=== PATIENT | male | born 1980 | race Two or more races ===

== ENCOUNTER 2020-06-01 15:13 | Inpatient (IN) | payer SELFPAY ==
[~2020-06-01] VITALS: Ht 162.6 cm; Wt 65.9 kg
--- NOTE | 2020-06-01 15:33 | EKG ---
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
[2020-06-01 15:49] LABS: BASO % 0 % (0-3); EOS % 0 % (0-3); HEMATOCRIT 43.3 % (39.0-53.0); HEMOGLOBIN 15.1 g/dL (13.0-17.5); LYMPH # 1.1 x10^3/uL (1.0-4.8); LYMPH % 14 % (24-48); MEAN CORPUSCULAR HEMOGLOBIN 31 pg (25-35); MEAN CORPUSCULAR HGB CONC 35 g/dL (31-37); MEAN CORPUSCULAR VOLUME 90 fL (79-100); MONO # 0.8 x10^3/uL (0.0-1.1); MONO % 11 % (0-9); NEUT # 5.8 x10^3/uL (1.8-7.7); NEUT % 75 % (31-73); PLATELET COUNT 377 x10^3/uL (140-400); RED BLOOD COUNT 4.82 x10^6/uL (4.30-5.70); RED CELL DISTRIBUTION WIDTH 13.2 % (11.5-14.5); WHITE BLOOD COUNT 7.7 x10^3/uL (4.0-11.0)
--- NOTE | 2020-06-01 16:01 | RAD ---
Exam: Chest one view INDICATION: Cough, Covid TECHNIQUE: Frontal view of the chest Comparisons: None FINDINGS: The cardiomediastinal silhouette and pulmonary vessels are within normal limits. Patchy bibasilar airspace disease is noted. No pleural effusion. IMPRESSION: Patchy bilateral airspace disease, may be infectious or inflammatory in etiology. Electronically signed by: Lisa Henson MD (06/01/2020 3:58 PM) [id number]
[2020-06-01 16:02] LABS: CALCIUM 8.6 mg/dL (8.5-10.1); CREATININE 0.8 mg/dL (0.7-1.3); GFR 108.8
[2020-06-01 16:07] LABS: ALBUMIN 3.4 g/dL (3.4-5.0); ALBUMIN/GLOBULIN RATIO 0.8 (1.0-1.7); C-REACTIVE PROTEIN 116.2 mg/L (0-3.3); TOTAL BILIRUBIN 0.4 mg/dL (0.2-1.0); TOTAL PROTEIN 7.5 g/dL (6.4-8.2)
[2020-06-01] MEDS ORDERED: ACETAMINOPHEN 500 MG TABLET PO ONE (16:30)
--- NOTE | 2020-06-01 16:30 | PDOC1 ---
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[employer], CXR CONCERNING FOR COVID19 CHANGES, PT PLACE ON O2 Past Medical History Cardiovascular: No pertinent hx Pulmonary: No pertinent hx Hepatobiliary: No pertinent hx Family History Family History: Hypertension Social History Smoke: No ALCOHOL: occassional Drugs: None Current Medications Current Medications Current Medications Ceftriaxone Sodium (Rocephin) 1 gm 1X ONCE IVP ; Start 06/01/20 at 16:45; Stop 06/01/20 at 16:46 Allergies Allergies: Coded Allergies: No Known Drug Allergies (Unverified , 06/01/20) ROS General: YES: Chills, Fatigue, Malaise PSYCHOLOGICAL ROS: No: Anxiety, Behavioral Disorder, Concentration difficultie, Decreased libido, Depression, Disorientation, Hallucinations, Hostility, Irritablity, Memory difficulties, Mood Swings, Obsessive thoughts, Physical abuse, Sexual abuse, Sleep disturbances, Suicidal ideation, Other Eyes: No Blurry vision, No Decreased vision, No Double vision, No Dry eyes, No Excessive tearing, No Eye Pain, No Itchy Eyes, No Loss of vision, No Photophobia, No Scotomata, No Uses contacts, No Uses glasses, No Other HEENT: YES: Heacaches; No: Visual Changes, Hearing change, Nasal congestion, Nasal discharge, Oral lesions, Sinus pain, Sore Throat, Epistaxis, Sneezing, Snoring, Tinnitus, Vertigo, Vocal changes, Other ALLERGY AND IMMUNOLOGY: No: Hives, Insect Bite Sensitivity, Itchy/Watery Eyes, Nasal Congestion, Post Nasal Drip, Seasonal Allergies, Other Hematological and Lymphatic: No: Bleeding Problems, Blood Clots, Blood Transfusions, Brusing, Night Sweats, Pallor, Swollen Lymph Nodes, Other Respiratory: YES: Cough, Shortness of breath, SOB with excertion Cardiovascular: No Chest Pain, No Palpitations, No Orthopnea, No Paroxysmal Noc. Dyspnea, No Edema, No Lt Headedness, No Other Gastrointestinal: No Nausea, No Vomiting, No Abdominal Pain, No Diarrhea, No Constipation, No Melena, No Hematochezia, No Other Musculoskeletal: No Gait Disturbance, No Joint Pain, No Joint Stiffness, No Joint Swelling, No Muscle Pain, No Muscular Weakness, No Pain In:, No Swelling In:, No Other Neurological: No Behavorial Changes, No Bowel/Bladder ControlChng, No Confusion, No Dizziness, No Gait Disturbance, No Headaches, No Impaired Coord/balance, No Memory Loss, No Numbness/Tingling, No Seizures, No Speech Problems, No Tremors, No Visual Changes, No Weakness, No Other Skin: No Dry Skin, No Eczema, No Hair Changes, No Lumps, No Mole Changes, No Mottling, No Nail Changes, No Pruritus, No Rash, No Skin Lesion Changes, No Other, No Acne Physical Exam General: Alert, Oriented X3, Cooperative, No acute distress, mild distress HEENT: Atraumatic, EOMI, Mucous membr. moist/pink Lungs: Normal air movement Heart: S1S2, RRR, no gallops Breasts: Not examined Abdomen: Normal bowel sounds, Soft Rectal Exam: not examined Extremities: No cyanosis, No edema Skin: No significant lesion Neuro: Normal speech, Cranial nerves 3-12 NL Psych/Mental Status: Mental status NL, Mood NL Vitals Vitals Vital Signs Date Time Temp Pulse Resp B/P (MAP) Pulse Ox O2 Delivery O2 Flow Rate FiO2 06/01/20 15:29 96 Nasal Cannula 2.0 06/01/20 15:28 102.2 95 24 159/77 (104) 102.2 Labs Labs Laboratory Tests Test 06/01/20 15:30 White Blood Count 7.7 x10^3/uL (4.0-11.0) Red Blood Count 4.82 x10^6/uL (4.30-5.70) Hemoglobin 15.1 g/dL (13.0-17.5) Hematocrit 43.3 % (39.0-53.0) Mean Corpuscular Volume 90 fL (79-100) Mean Corpuscular Hemoglobin 31 pg (25-35) Mean Corpuscular Hemoglobin Concent 35 g/dL (31-37) Red Cell Distribution Width 13.2 % (11.5-14.5) Platelet Count 377 x10^3/uL (140-400) Neutrophils (%) (Auto) 75 % (31-73) Lymphocytes (%) (Auto) 14 % (24-48) Monocytes (%) (Auto) 11 % (0-9) Eosinophils (%) (Auto) 0 % (0-3) Basophils (%) (Auto) 0 % (0-3) Neutrophils # (Auto) 5.8 x10^3/uL (1.8-7.7) Lymphocytes # (Auto) 1.1 x10^3/uL (1.0-4.8) Monocytes # (Auto) 0.8 x10^3/uL (0.0-1.1) Eosinophils # (Auto) 0.0 x10^3/uL (0.0-0.7) Basophils # (Auto) 0.0 x10^3/uL (0.0-0.2) D-Dimer (Katie) 2.02 ug/mlFEU (0.00-0.50) Sodium Level 138 mmol/L (136-145) Potassium Level 4.0 mmol/L (3.5-5.1) Chloride Level 98 mmol/L (98-107) Carbon Dioxide Level 29 mmol/L (21-32) Anion Gap 11 (6-14) Blood Urea Nitrogen 13 mg/dL (8-26) Creatinine 0.8 mg/dL (0.7-1.3) Estimated GFR (Cockcroft-Gault) 108.8 BUN/Creatinine Ratio 16 (6-20) Glucose Level 103 mg/dL (70-99) Calcium Level 8.6 mg/dL (8.5-10.1) Total Bilirubin 0.4 mg/dL (0.2-1.0) Aspartate Amino Transf (AST/SGOT) 53 U/L (15-37) Alanine Aminotransferase (ALT/SGPT) 53 U/L (16-63) Alkaline Phosphatase 114 U/L (46-116) Lactate Dehydrogenase 354 U/L (85-227) Creatine Kinase 68 U/L (39-308) Troponin I Quantitative < 0.017 ng/mL (0.000-0.055) C-Reactive Protein, Quantitative 116.2 mg/L (0-3.3) YC-Dwn-T-Type Natriuretic Peptide 21 pg/mL (0-124) Total Protein 7.5 g/dL (6.4-8.2) Albumin 3.4 g/dL (3.4-5.0) Albumin/Globulin Ratio 0.8 (1.0-1.7) Laboratory Tests Test 06/01/20 15:30 White Blood Count 7.7 x10^3/uL (4.0-11.0) Red Blood Count 4.82 x10^6/uL (4.30-5.70) Hemoglobin 15.1 g/dL (13.0-17.5) Hematocrit 43.3 % (39.0-53.0) Mean Corpuscular Volume 90 fL (79-100) Mean Corpuscular Hemoglobin 31 pg (25-35) Mean Corpuscular Hemoglobin Concent 35 g/dL (31-37) Red Cell Distribution Width 13.2 % (11.5-14.5) Platelet Count 377 x10^3/uL (140-400) Neutrophils (%) (Auto) 75 % (31-73) Lymphocytes (%) (Auto) 14 % (24-48) Monocytes (%) (Auto) 11 % (0-9) Eosinophils (%) (Auto) 0 % (0-3) Basophils (%) (Auto) 0 % (0-3) Neutrophils # (Auto) 5.8 x10^3/uL (1.8-7.7) Lymphocytes # (Auto) 1.1 x10^3/uL (1.0-4.8) Monocytes # (Auto) 0.8 x10^3/uL (0.0-1.1) Eosinophils # (Auto) 0.0 x10^3/uL (0.0-0.7) Basophils # (Auto) 0.0 x10^3/uL (0.0-0.2) D-Dimer (Katie) 2.02 ug/mlFEU (0.00-0.50) Sodium Level 138 mmol/L (136-145) Potassium Level 4.0 mmol/L (3.5-5.1) Chloride Level 98 mmol/L (98-107) Carbon Dioxide Level 29 mmol/L (21-32) Anion Gap 11 (6-14) Blood Urea Nitrogen 13 mg/dL (8-26) Creatinine 0.8 mg/dL (0.7-1.3) Estimated GFR (Cockcroft-Gault) 108.8 BUN/Creatinine Ratio 16 (6-20) Glucose Level 103 mg/dL (70-99) Calcium Level 8.6 mg/dL (8.5-10.1) Total Bilirubin 0.4 mg/dL (0.2-1.0) Aspartate Amino Transf (AST/SGOT) 53 U/L (15-37) Alanine Aminotransferase (ALT/SGPT) 53 U/L (16-63) Alkaline Phosphatase 114 U/L (46-116) Lactate Dehydrogenase 354 U/L (85-227) Creatine Kinase 68 U/L (39-308) Troponin I Quantitative < 0.017 ng/mL (0.000-0.055) C-Reactive Protein, Quantitative 116.2 mg/L (0-3.3) NL-Gwe-E-Type Natriuretic Peptide 21 pg/mL (0-124) Total Protein 7.5 g/dL (6.4-8.2) Albumin 3.4 g/dL (3.4-5.0) Albumin/Globulin Ratio 0.8 (1.0-1.7) Images Images Exam: Chest one view INDICATION: Cough, Covid TECHNIQUE: Frontal view of the chest Comparisons: None FINDINGS: The cardiomediastinal silhouette and pulmonary vessels are within normal limits. Patchy bibasilar airspace disease is noted. No pleural effusion. IMPRESSION: Patchy bilateral airspace disease, may be infectious or inflammatory in etiology. Electronically signed by: Lisa Sullivan MD (06/01/2020 3:58 PM) [id number] DICTATED and SIGNED BY: LISA SULLIVAN MD DATE: 06/01/20 1558 VTE Prophylaxis Ordered VTE Prophylaxis Devices: Yes VTE Pharmacological Prophylaxi: Yes Assessment/Plan Assessment/Plan impression 1. FEVER, COUGH, HYPOXIA 2. COVID-19 PUI PLAN ADMIT O2 SUPPORT IV ZOSYN COVID 19 AG IV PEPSID 20 MG BID FERRITIN LEVEL CONSULT DR VERDUGO RESP ISOLATION DVT PROPHYLAXIS SQ LOVENOX 40 MG BID D/W ER MARIA LUZ Justicifation of Admission Dx: Justifications for Admission: Justification of Admission Dx: Yes CHF: Hemodynamic Instability Respiratory Failure: Severe Resp Distress Chronic Renal Failure: Hemodynamic Instability Sepsis: End-Organ Dysfunction Altered Mental Status: Altered Mental Status SHIRIN GOMEZ MD Jun 01, 2020 16:30
[2020-06-01] MEDS ORDERED: guaiFENesin ORAL 200 MG/10 ML LIQUID. PO PRN (16:45)
[2020-06-01] MEDS ORDERED: LORazepam 0.5 MG TABLET PO PRN (16:45)
[2020-06-01] MEDS ORDERED: ACETAMINOPHEN 325 MG TABLET. PO PRN (16:45)
[2020-06-01] MEDS ORDERED: DOCUSATE SODIUM 100 MG CAPSULE. PO PRN (16:45)
[2020-06-01] MEDS ORDERED: ONDANSETRON PF 4 MG/2 ML VIAL. IV PRN (16:45)
[2020-06-01] MEDS ORDERED: MAG HYDROX/ALUMINUM HYD/SIMETH 30 ML ORAL.SUSP PO PRN (16:45)
[2020-06-01] MEDS ORDERED: cefTRIAXone IV Push 1 GM VIAL. IVP ONE (16:45)
[2020-06-01] MEDS ORDERED: 0.9 % SODIUM CHLORIDE 10 ML DISP.SYRIN. IV PRN (16:45)
[2020-06-01] MEDS ORDERED: cloNIDine HCL 0.1 MG TABLET PO PRN (16:45)
[2020-06-01] MEDS: IV NORMAL SALINE 1000ML BAG 1,000 ML IV SCH (17:11)
[2020-06-01] MEDS ORDERED: PIPERACILLIN/TAZOBACTAM 3.375 GM in IV NORMAL SALINE 50ML 50 ML IV ONE (17:30)
--- NOTE | 2020-06-01 17:48 | PHYS DOC ---
Past Medical History Past Medical History: No Pertinent History Past Surgical History: Appendectomy Smoking Status: Current Some Day Smoker Alcohol Use: Occasionally General Adult EDM: Chief Complaint: SHORTNESS OF BREATH HPI: HPI: Patient is a 39 year old male who presents with shortness of breath, cough, fever, and body aches. This is been ongoing for the last week. It is been progressively getting worse. He states now he has a hard time walking short distances without feeling very short of breath. He has not been around anybody ill that he is aware of. He is still working. He states that he has diffuse body aches that are mild. He denies any chest pain. He has not had any nausea, vomiting, diarrhea, change in taste or smell. Review of Systems: Review of Systems: General: Reports fever, chills, sweats, fatigue Eyes: Denies drainage, blurred vision, eye redness HENT: Reports rhinorrhea, sore throat, earache Respiratory: Reports cough, shortness of breath, wheezing Cardiac: Denies edema, palpitations, chest pain GI: Denies abdominal pain, Nausea, vomiting MSK: Denies back pain, neck pain Skin: Denies rash, jaundice Neuro: Denies headache, dizziness Psychiatric: Denies SI/HI Heart Score: Risk Factors: Risk Factors: DM, Current or recent (<one month) smoker, HTN, HLP, family history of CAD, obesity. Risk Scores: Score 0 - 3: 2.5% MACE over next 6 weeks - Discharge Home Score 4 - 6: 20.3% MACE over next 6 weeks - Admit for Clinical Observation Score 7 - 10: 72.7% MACE over next 6 weeks - Early Invasive Strategies Current Medications: Current Medications Medications (Trade) Dose Ordered Sig/Piter Start Time Stop Time Status Last Admin Dose Admin Acetaminophen (Tylenol) 650 mg PRN Q4HRS PRN 06/01/20 16:45 Al Hydroxide/Mg Hydroxide (Mylanta Plus Xs) 30 ml PRN DAILY PRN 06/01/20 16:45 Budesonide (Pulmicort) 0.5 mg BID 06/01/20 21:00 Ceftriaxone Sodium (Rocephin) 1 gm 1X ONCE 06/01/20 16:45 06/01/20 16:46 DC 06/01/20 16:33 1 GM Clonidine HCl (Catapres) 0.1 mg PRN Q6HRS PRN 06/01/20 16:45 Docusate Sodium (Colace) 100 mg PRN BID PRN 06/01/20 16:45 Enoxaparin Sodium (Lovenox 40mg Syringe) 40 mg BID 06/01/20 21:00 Famotidine (Pepcid Vial) 20 mg BID 06/01/20 21:00 Guaifenesin (Robitussin) 200 mg PRN Q4HRS PRN 06/01/20 16:45 Lorazepam (Ativan) 0.5 mg PRN Q4HRS PRN 06/01/20 16:45 Methylprednisolone Sodium Succinate (SOLU-Medrol 40MG VIAL) 60 mg Q8HRS 06/01/20 22:00 Ondansetron HCl (Zofran) 4 mg PRN Q4HRS PRN 06/01/20 16:45 Piperacillin Sod/ Tazobactam Sod 3.375 gm/Sodium Chloride 50 ml @ 100 mls/hr 1X ONCE 06/01/20 17:30 06/01/20 17:59 06/01/20 17:10 100 MLS/HR Sodium Chloride 1,000 ml @ 100 mls/hr Q10H 06/01/20 16:40 06/01/20 17:11 100 MLS/HR Sodium Chloride (Normal Saline Flush) 3 ml QSHIFT PRN 06/01/20 16:45 Allergies: Allergies: Allergies Coded Allergies Type Severity Reaction Last Updated Verified No Known Drug Allergies 06/01/20 No Physical Exam: PE: General: Awake, alert, NAD. Well Nourished, well hydrated. Cooperative HEENT: Atraumatic, EOMI, PERRL, airway patent, moist oral mucosa Neck: Supple, trachea midline Respiratory: CTA bilaterally, normal effort, decreased breath sounds CV: RRR, no murmur, cap refill <2 GI: Soft, nondistended, nontender, no masses MSK: No obvious deformities Skin: Warm, dry, intact Neuro: A&O x3, speech NL, sensory and motor grossly intact, no focal deficits Psych: Normal affect, normal mood, not suicidal or homicidal Current Patient Data: Labs: Laboratory Tests Test 06/01/20 15:30 White Blood Count 7.7 x10^3/uL (4.0-11.0) Red Blood Count 4.82 x10^6/uL (4.30-5.70) Hemoglobin 15.1 g/dL (13.0-17.5) Hematocrit 43.3 % (39.0-53.0) Mean Corpuscular Volume 90 fL (79-100) Mean Corpuscular Hemoglobin 31 pg (25-35) Mean Corpuscular Hemoglobin Concent 35 g/dL (31-37) Red Cell Distribution Width 13.2 % (11.5-14.5) Platelet Count 377 x10^3/uL (140-400) Neutrophils (%) (Auto) 75 % (31-73) H Lymphocytes (%) (Auto) 14 % (24-48) L Monocytes (%) (Auto) 11 % (0-9) H Eosinophils (%) (Auto) 0 % (0-3) Basophils (%) (Auto) 0 % (0-3) Neutrophils # (Auto) 5.8 x10^3/uL (1.8-7.7) Lymphocytes # (Auto) 1.1 x10^3/uL (1.0-4.8) Monocytes # (Auto) 0.8 x10^3/uL (0.0-1.1) Eosinophils # (Auto) 0.0 x10^3/uL (0.0-0.7) Basophils # (Auto) 0.0 x10^3/uL (0.0-0.2) D-Dimer (Katie) 2.02 ug/mlFEU (0.00-0.50) H Sodium Level 138 mmol/L (136-145) Potassium Level 4.0 mmol/L (3.5-5.1) Chloride Level 98 mmol/L (98-107) Carbon Dioxide Level 29 mmol/L (21-32) Anion Gap 11 (6-14) Blood Urea Nitrogen 13 mg/dL (8-26) Creatinine 0.8 mg/dL (0.7-1.3) Estimated GFR (Cockcroft-Gault) 108.8 BUN/Creatinine Ratio 16 (6-20) Glucose Level 103 mg/dL (70-99) H Calcium Level 8.6 mg/dL (8.5-10.1) Ferritin 1565 ng/mL (26-388) H Total Bilirubin 0.4 mg/dL (0.2-1.0) Aspartate Amino Transferase (AST) 53 U/L (15-37) H Alanine Aminotransferase (ALT) 53 U/L (16-63) Alkaline Phosphatase 114 U/L (46-116) Lactate Dehydrogenase 354 U/L (85-227) H Creatine Kinase 68 U/L (39-308) Troponin I Quantitative < 0.017 ng/mL (0.000-0.055) C-Reactive Protein, Quantitative 116.2 mg/L (0-3.3) H ZC-Qxo-L-Type Natriuretic Peptide 21 pg/mL (0-124) Total Protein 7.5 g/dL (6.4-8.2) Albumin 3.4 g/dL (3.4-5.0) Albumin/Globulin Ratio 0.8 (1.0-1.7) L Laboratory Tests 06/01/20 15:30 Laboratory Tests 06/01/20 15:30 Vital Signs: Vital Signs Date Time Temp Pulse Resp B/P (MAP) Pulse Ox O2 Delivery O2 Flow Rate FiO2 06/01/20 16:30 90 126/69 (88) 96 Nasal Cannula 2.0 06/01/20 15:28 102.2 24 102.2 EKG: EKG: [] Radiology/Procedures: Radiology/Procedures: [] Course & Med Decision Making: Course & Med Decision Making Pertinent Labs and Imaging studies reviewed. (See chart for details) Patient is a 39-year-old male who presents to the emergency room with shortness of breath, cough, URI symptoms. At this time there is concern for the novel coronavirus 19. Patient's risk factors include hypoxia. Risk stratifying work- up was ordered including chest x-ray, d-dimer, CPK, CRP, LDH, troponin, ferritin, CBC, CMP. At this time, patients labs, vitals, and exam are significant for hypoxia, elevated inflammatory markers, infiltrates on chest x- ray. Due to patient's risk and clinical picture, they will need to be admitted at this time. IVFs will be limited due to concern for fluid overload in COVID-19 patients. Patient will be given empiric antibiotics due to infiltrates and risk of co-bacterial infection. Further treatment will be dictated by the inpatient team. Syed Disclaimer: Syed Disclaimer: This electronic medical record was generated, in whole or in part, using a voice recognition dictation system. PPE Use: Full PPE with N95 mask or PAPR: Yes Departure Departure Impression: Primary Impression: Pneumonia Additional Impression: 2019 novel coronavirus disease (COVID-19) Disposition: 09 ADMITTED INPATIENT Referrals: NO PCP (PCP) Justicifation of Admission Dx: Justifications for Admission: Justification of Admission Dx: Yes Comminuty Aquired Pneumonia: Hypoxemia GIRISH VALE MD Jun 01, 2020 17:48
[2020-06-01 18:21] VITALS: BP 144/65
--- NOTE | 2020-06-01 19:16 | CONS ---
DATE OF CONSULTATION: 06/01/2020 PULMONARY CONSULTATION ATTENDING PHYSICIAN: Jax Vasquez MD. REASON FOR CONSULTATION: COVID-19 pneumonia. HISTORY OF PRESENT ILLNESS: The patient is a 39-year-old male who does not speak Armenian. Much of the history was obtained with the help of [employer] Cook Islander translation. The patient presented with cough and shortness of breath and chills for the last one week. He was noted to be hypoxic in the Emergency Room and was placed on oxygen at 2 liters. 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 His chest x-ray reviewed and showed bilateral interstitial infiltrates. His COVID test has been obtained and is pending. He has a fever of 102. He is currently on 2 liters with saturation of 97%. PAST MEDICAL HISTORY: Essentially unremarkable. PAST SURGICAL HISTORY: Appendectomy. SOCIAL HISTORY: Has some minimal tobacco use. ALLERGIES: None. MEDICATIONS: Reviewed as listed in the MRAD including antibiotic, Zosyn and IV prednisolone. REVIEW OF SYSTEMS: Unable to obtain from the patient. PHYSICAL EXAMINATION: VITAL SIGNS: Reviewed. T-max of 102, pulse ox 97% on 2 liters. Visual exam done via telemedicine due to COVID pandemia. GENERAL: He is in no obvious respiratory distress. SKIN: With no rash. EXTREMITIES: Legs with no edema. LABORATORY DATA: Reviewed. White cell count 7.7, hemoglobin 15.1, platelets are 377. BUN 13, creatinine 0.8. Ferritin 1565. IMPRESSION: 1. Acute hypoxic respiratory failure secondary to highly suspected COVID-19 pneumonia. 2. Abnormal chest x-ray with patchy interstitial infiltrates, highly suspicious for COVID-19 pneumonia. RECOMMENDATIONS: 1. Continue with present oxygen to keep saturation 92-94. 2. Continue empiric antibiotic. 3. Continue IV steroids. 4. Monitor the response to treatment. 5. We will consider remdesivir. 6. Discussed with RN. Discussed with the patient. 7. Continue with high dose DVT prophylaxis and follow up the inflammatory markers. RAUL VERDUGO MD DR: RISA/noah JOB#: [id number] / [id number]
[2020-06-01] MEDS: FAMOTIDINE 20 MG/2 ML VIAL IVP SCH (20:09)
[2020-06-01] MEDS: ENOXAPARIN 40 MG/0.4 ML SYRINGE. SQ SCH (20:09)
[2020-06-01 20:15] VITALS: BP 131/63
[2020-06-01] MEDS: methylPREDNISolone SOD SUCC PF 40 MG/ML VIAL. IV SCH (23:15)
[2020-06-01] MEDS: PIPERACILLIN/TAZOBACTAM 3.375 GM in IV NORMAL SALINE 50ML 50 ML IV SCH (23:15)
[2020-06-01 23:23] VITALS: BP 129/64
[2020-06-02 03:39] VITALS: BP 130/70
[2020-06-02] MEDS: IV NORMAL SALINE 1000ML BAG 1,000 ML IV SCH ×2 (03:59→12:33)
[2020-06-02] MEDS: PIPERACILLIN/TAZOBACTAM 3.375 GM in IV NORMAL SALINE 50ML 50 ML IV SCH (06:26)
[2020-06-02] MEDS: methylPREDNISolone SOD SUCC PF 40 MG/ML VIAL. IV SCH (06:26)
[2020-06-02] MEDS: BUDESONIDE 0.5 MG/2 ML NEBU. NEB SCH ×2 (06:32→21:00)
[2020-06-02 08:00] VITALS: BP 128/62
[2020-06-02] MEDS: FAMOTIDINE 20 MG/2 ML VIAL IVP SCH ×2 (08:08→21:11)
[2020-06-02] MEDS: ENOXAPARIN 40 MG/0.4 ML SYRINGE. SQ SCH ×2 (08:09→21:12)
[2020-06-02 11:00] VITALS: BP 137/69
--- NOTE | 2020-06-02 11:09 | PDOC ---
PULMONARY PROGRESS NOTES DATE: 06/02/20 TIME: 11:04 Subjective Pt. on 2 liters, no SOA no increased cough Clinically improved a-febrile overnight Vitals Vital Signs Date Time Temp Pulse Resp B/P (MAP) Pulse Ox O2 Delivery O2 Flow Rate FiO2 06/02/20 08:00 97.1 75 14 128/62 (84) 97 Nasal Cannula 2.0 97.1 Comments Visual exam preformed pt. seen during COVID- pandemic RRR no distress no rash no edema on N/C o2 Labs Laboratory Tests Test 06/01/20 15:30 White Blood Count 7.7 x10^3/uL (4.0-11.0) Red Blood Count 4.82 x10^6/uL (4.30-5.70) Hemoglobin 15.1 g/dL (13.0-17.5) Hematocrit 43.3 % (39.0-53.0) Mean Corpuscular Volume 90 fL (79-100) Mean Corpuscular Hemoglobin 31 pg (25-35) Mean Corpuscular Hemoglobin Concent 35 g/dL (31-37) Red Cell Distribution Width 13.2 % (11.5-14.5) Platelet Count 377 x10^3/uL (140-400) Neutrophils (%) (Auto) 75 % (31-73) Lymphocytes (%) (Auto) 14 % (24-48) Monocytes (%) (Auto) 11 % (0-9) Eosinophils (%) (Auto) 0 % (0-3) Basophils (%) (Auto) 0 % (0-3) Neutrophils # (Auto) 5.8 x10^3/uL (1.8-7.7) Lymphocytes # (Auto) 1.1 x10^3/uL (1.0-4.8) Monocytes # (Auto) 0.8 x10^3/uL (0.0-1.1) Eosinophils # (Auto) 0.0 x10^3/uL (0.0-0.7) Basophils # (Auto) 0.0 x10^3/uL (0.0-0.2) D-Dimer (Katie) 2.02 ug/mlFEU (0.00-0.50) Sodium Level 138 mmol/L (136-145) Potassium Level 4.0 mmol/L (3.5-5.1) Chloride Level 98 mmol/L (98-107) Carbon Dioxide Level 29 mmol/L (21-32) Anion Gap 11 (6-14) Blood Urea Nitrogen 13 mg/dL (8-26) Creatinine 0.8 mg/dL (0.7-1.3) Estimated GFR (Cockcroft-Gault) 108.8 BUN/Creatinine Ratio 16 (6-20) Glucose Level 103 mg/dL (70-99) Calcium Level 8.6 mg/dL (8.5-10.1) Ferritin 1565 ng/mL (26-388) Total Bilirubin 0.4 mg/dL (0.2-1.0) Aspartate Amino Transf (AST/SGOT) 53 U/L (15-37) Alanine Aminotransferase (ALT/SGPT) 53 U/L (16-63) Alkaline Phosphatase 114 U/L (46-116) Lactate Dehydrogenase 354 U/L (85-227) Creatine Kinase 68 U/L (39-308) Troponin I Quantitative < 0.017 ng/mL (0.000-0.055) C-Reactive Protein, Quantitative 116.2 mg/L (0-3.3) FZ-Uwl-V-Type Natriuretic Peptide 21 pg/mL (0-124) Total Protein 7.5 g/dL (6.4-8.2) Albumin 3.4 g/dL (3.4-5.0) Albumin/Globulin Ratio 0.8 (1.0-1.7) Laboratory Tests Test 06/01/20 15:30 White Blood Count 7.7 x10^3/uL (4.0-11.0) Red Blood Count 4.82 x10^6/uL (4.30-5.70) Hemoglobin 15.1 g/dL (13.0-17.5) Hematocrit 43.3 % (39.0-53.0) Mean Corpuscular Volume 90 fL (79-100) Mean Corpuscular Hemoglobin 31 pg (25-35) Mean Corpuscular Hemoglobin Concent 35 g/dL (31-37) Red Cell Distribution Width 13.2 % (11.5-14.5) Platelet Count 377 x10^3/uL (140-400) Neutrophils (%) (Auto) 75 % (31-73) Lymphocytes (%) (Auto) 14 % (24-48) Monocytes (%) (Auto) 11 % (0-9) Eosinophils (%) (Auto) 0 % (0-3) Basophils (%) (Auto) 0 % (0-3) Neutrophils # (Auto) 5.8 x10^3/uL (1.8-7.7) Lymphocytes # (Auto) 1.1 x10^3/uL (1.0-4.8) Monocytes # (Auto) 0.8 x10^3/uL (0.0-1.1) Eosinophils # (Auto) 0.0 x10^3/uL (0.0-0.7) Basophils # (Auto) 0.0 x10^3/uL (0.0-0.2) D-Dimer (Katie) 2.02 ug/mlFEU (0.00-0.50) Sodium Level 138 mmol/L (136-145) Potassium Level 4.0 mmol/L (3.5-5.1) Chloride Level 98 mmol/L (98-107) Carbon Dioxide Level 29 mmol/L (21-32) Anion Gap 11 (6-14) Blood Urea Nitrogen 13 mg/dL (8-26) Creatinine 0.8 mg/dL (0.7-1.3) Estimated GFR (Cockcroft-Gault) 108.8 BUN/Creatinine Ratio 16 (6-20) Glucose Level 103 mg/dL (70-99) Calcium Level 8.6 mg/dL (8.5-10.1) Ferritin 1565 ng/mL (26-388) Total Bilirubin 0.4 mg/dL (0.2-1.0) Aspartate Amino Transf (AST/SGOT) 53 U/L (15-37) Alanine Aminotransferase (ALT/SGPT) 53 U/L (16-63) Alkaline Phosphatase 114 U/L (46-116) Lactate Dehydrogenase 354 U/L (85-227) Creatine Kinase 68 U/L (39-308) Troponin I Quantitative < 0.017 ng/mL (0.000-0.055) C-Reactive Protein, Quantitative 116.2 mg/L (0-3.3) MZ-Dpb-H-Type Natriuretic Peptide 21 pg/mL (0-124) Total Protein 7.5 g/dL (6.4-8.2) Albumin 3.4 g/dL (3.4-5.0) Albumin/Globulin Ratio 0.8 (1.0-1.7) Comments CXR IMPRESSION: Patchy bilateral airspace disease, may be infectious or inflammatory in etiology. Impression . IMPRESSION: 1. Acute hypoxic respiratory failure secondary to highly suspected COVID-19 pneumonia. 2. Abnormal chest x-ray with patchy interstitial infiltrates, highly suspicious for COVID-19 pneumonia. Plan . RECOMMENDATIONS: 1. Continue with present oxygen to keep saturation 92-94, on 2 liters N/C 2. Continue empiric antibiotic, will switch to po augmentin 3. Continue steorids, change to po for 10 day course with taper 4. Monitor the response to treatment. 5. no need for remdesivir at this time 6. Continue with high dose DVT prophylaxis and follow up the inflammatory markers. Discussed with RN. Discussed with the patient and Dr. Ramirez could possibly D/C home if able to coordinate home oxygen RAUL VERDUGO MD Jun 02, 2020 11:09
--- NOTE | 2020-06-02 11:25 | PDOC ---
[facility] PROGRESS NOTE Date of Service DOS: DATE: 06/02/20 TIME: 11:19 Chief Complaint Chief Complaint Hypoxia Pui Covid History of Present Illness History of Present Illness 06/02/20 Patient seen and examined Chart reviewed Discussed with RN Discussed with Patient looks stable Vitals/I&O Vitals/I&O: Vital Signs Date Time Temp Pulse Resp B/P (MAP) Pulse Ox O2 Delivery O2 Flow Rate FiO2 06/02/20 08:00 97.1 75 14 128/62 (84) 97 Nasal Cannula 2.0 97.1 I & O 06/01/20 06/01/20 06/02/20 15:00 23:00 07:00 Intake Total 500 ml Output Total 500 ml 500 ml Balance -500 ml 0 ml Physical Exam General: Alert, Oriented X3, Cooperative, No acute distress, mild distress Abdomen: Normal bowel sounds, Soft Extremities: No cyanosis, No edema Skin: No significant lesion Labs Labs: Laboratory Tests Test 06/01/20 15:30 White Blood Count 7.7 x10^3/uL (4.0-11.0) Red Blood Count 4.82 x10^6/uL (4.30-5.70) Hemoglobin 15.1 g/dL (13.0-17.5) Hematocrit 43.3 % (39.0-53.0) Mean Corpuscular Volume 90 fL (79-100) Mean Corpuscular Hemoglobin 31 pg (25-35) Mean Corpuscular Hemoglobin Concent 35 g/dL (31-37) Red Cell Distribution Width 13.2 % (11.5-14.5) Platelet Count 377 x10^3/uL (140-400) Neutrophils (%) (Auto) 75 % (31-73) Lymphocytes (%) (Auto) 14 % (24-48) Monocytes (%) (Auto) 11 % (0-9) Eosinophils (%) (Auto) 0 % (0-3) Basophils (%) (Auto) 0 % (0-3) Neutrophils # (Auto) 5.8 x10^3/uL (1.8-7.7) Lymphocytes # (Auto) 1.1 x10^3/uL (1.0-4.8) Monocytes # (Auto) 0.8 x10^3/uL (0.0-1.1) Eosinophils # (Auto) 0.0 x10^3/uL (0.0-0.7) Basophils # (Auto) 0.0 x10^3/uL (0.0-0.2) D-Dimer (Katie) 2.02 ug/mlFEU (0.00-0.50) Sodium Level 138 mmol/L (136-145) Potassium Level 4.0 mmol/L (3.5-5.1) Chloride Level 98 mmol/L (98-107) Carbon Dioxide Level 29 mmol/L (21-32) Anion Gap 11 (6-14) Blood Urea Nitrogen 13 mg/dL (8-26) Creatinine 0.8 mg/dL (0.7-1.3) Estimated GFR (Cockcroft-Gault) 108.8 BUN/Creatinine Ratio 16 (6-20) Glucose Level 103 mg/dL (70-99) Calcium Level 8.6 mg/dL (8.5-10.1) Ferritin 1565 ng/mL (26-388) Total Bilirubin 0.4 mg/dL (0.2-1.0) Aspartate Amino Transf (AST/SGOT) 53 U/L (15-37) Alanine Aminotransferase (ALT/SGPT) 53 U/L (16-63) Alkaline Phosphatase 114 U/L (46-116) Lactate Dehydrogenase 354 U/L (85-227) Creatine Kinase 68 U/L (39-308) Troponin I Quantitative < 0.017 ng/mL (0.000-0.055) C-Reactive Protein, Quantitative 116.2 mg/L (0-3.3) YL-Cjf-K-Type Natriuretic Peptide 21 pg/mL (0-124) Total Protein 7.5 g/dL (6.4-8.2) Albumin 3.4 g/dL (3.4-5.0) Albumin/Globulin Ratio 0.8 (1.0-1.7) Assessment and Plan Assessmemt and Plan Problems Medical Problems: (1) 2019 novel coronavirus disease (COVID-19) Status: Acute Assessment: Pui Covid Hypoxia Plan: Multivitamins with minerals Respiratory isolation Awaiting Covid test Continue steroids DVT prophylaxis Continue monitoring inflammatory markers Appreciate subspecialist input Comment Review of Relevant I have reviewed the following items ricardo (where applicable) has been applied. Medications: Current Medications Medications (Trade) Dose Ordered Sig/Piter Route PRN Reason Start Time Stop Time Status Last Admin Dose Admin Ceftriaxone Sodium (Rocephin) 1 gm 1X ONCE IVP 06/01/20 16:45 06/01/20 16:46 DC 06/01/20 16:33 Acetaminophen (Tylenol) 1,000 mg 1X ONCE PO 06/01/20 16:30 06/01/20 16:31 DC 06/01/20 16:33 Sodium Chloride 1,000 ml @ 100 mls/hr Q10H IV 06/01/20 16:40 06/02/20 03:59 Acetaminophen (Tylenol) 650 mg PRN Q4HRS PRN PO TEMP OVER 100.4F OR MILD PAIN 06/01/20 16:45 06/02/20 04:00 Enoxaparin Sodium (Lovenox 40mg Syringe) 40 mg BID SQ 06/01/20 21:00 06/02/20 08:09 Piperacillin Sod/ Tazobactam Sod 3.375 gm/Sodium Chloride 50 ml @ 100 mls/hr Q6HRS IV 06/02/20 00:00 06/02/20 11:11 DC 06/02/20 06:26 Methylprednisolone Sodium Succinate (SOLU-Medrol 40MG VIAL) 60 mg Q8HRS IV 06/01/20 22:00 06/02/20 11:11 DC 06/02/20 06:26 Famotidine (Pepcid Vial) 20 mg BID IVP 06/01/20 21:00 06/02/20 08:08 Piperacillin Sod/ Tazobactam Sod 3.375 gm/Sodium Chloride 50 ml @ 100 mls/hr 1X ONCE IV 06/01/20 17:30 06/01/20 17:59 DC 06/01/20 17:10 Justicifation of Admission Dx: Justifications for Admission: Justification of Admission Dx: Yes CHF: Hemodynamic Instability Respiratory Failure: Severe Resp Distress Comminuty Aquired Pneumonia: Hypoxemia Chronic Renal Failure: Hemodynamic Instability Sepsis: End-Organ Dysfunction Altered Mental Status: Altered Mental Status JACQUELYN BALDWIN III DO Jun 02, 2020 11:25
[2020-06-02] MEDS: MULTIVITAMIN with MINERAL TABLET. PO SCH (12:33)
[2020-06-02 15:00] VITALS: BP_SYST 129; BP_SYST 134; BP_DIAS 74; BP_DIAS 76
[2020-06-02 19:54] VITALS: BP 143/75
[2020-06-02] MEDS: AMOXICILLIN/K CLAV 875/125MG TABLET. PO SCH (21:11)
[2020-06-02 23:09] VITALS: BP 128/62
[2020-06-03 03:16] VITALS: BP 131/68
[2020-06-03 03:54] LABS: BASO % 0 % (0-3); EOS % 0 % (0-3); HEMATOCRIT 39.5 % (39.0-53.0); HEMOGLOBIN 13.7 g/dL (13.0-17.5); LYMPH # 1.4 x10^3/uL (1.0-4.8); LYMPH % 21 % (24-48); MEAN CORPUSCULAR HEMOGLOBIN 31 pg (25-35); MEAN CORPUSCULAR HGB CONC 35 g/dL (31-37); MEAN CORPUSCULAR VOLUME 89 fL (79-100); MONO # 1.2 x10^3/uL (0.0-1.1); MONO % 19 % (0-9); NEUT % 60 % (31-73); PLATELET COUNT 459 x10^3/uL (140-400); RED BLOOD COUNT 4.42 x10^6/uL (4.30-5.70); RED CELL DISTRIBUTION WIDTH 12.8 % (11.5-14.5); WHITE BLOOD COUNT 6.7 x10^3/uL (4.0-11.0)
[2020-06-03 04:09] LABS: CALCIUM 8.6 mg/dL (8.5-10.1); CREATININE 0.7 mg/dL (0.7-1.3); GFR 126.9; POTASSIUM 3.6 mmol/L (3.5-5.1)
[2020-06-03 05:36] LABS: % BANDS 5 % (0-9); % LYMPHS 20 % (24-48); % MONOS 12 % (0-10); % SEGS 63 % (35-66)
[2020-06-03 05:37] LABS: PLT ESTIMATE INCREASED (ADEQUATE)
[2020-06-03 07:00] VITALS: BP 133/78
[2020-06-03] MEDS: FAMOTIDINE 20 MG/2 ML VIAL IVP SCH (08:21)
[2020-06-03] MEDS: predniSONE 20 MG TABLET PO SCH (08:21)
[2020-06-03] MEDS: AMOXICILLIN/K CLAV 875/125MG TABLET. PO SCH ×2 (08:21→21:36)
[2020-06-03] MEDS: MULTIVITAMIN with MINERAL TABLET. PO SCH (08:21)
[2020-06-03] MEDS: ENOXAPARIN 40 MG/0.4 ML SYRINGE. SQ SCH ×2 (08:21→21:36)
--- NOTE | 2020-06-03 08:47 | PDOC ---
PULMONARY PROGRESS NOTES DATE: 06/03/20 TIME: 08:47 Subjective Pt. on 2 liters, no SOA no increased cough Clinically improved a-febrile overnight Vitals Vital Signs Date Time Temp Pulse Resp B/P (MAP) Pulse Ox O2 Delivery O2 Flow Rate FiO2 06/03/20 08:00 Nasal Cannula 2.0 06/03/20 03:16 97.9 68 16 131/68 (89) 93 97.9 Comments alert no paradoxical abd motion no audible wheezing RRR no distress no rash no edema on N/C o2 Labs Laboratory Tests Test 06/01/20 15:30 06/03/20 03:30 White Blood Count 7.7 x10^3/uL (4.0-11.0) 6.7 x10^3/uL (4.0-11.0) Red Blood Count 4.82 x10^6/uL (4.30-5.70) 4.42 x10^6/uL (4.30-5.70) Hemoglobin 15.1 g/dL (13.0-17.5) 13.7 g/dL (13.0-17.5) Hematocrit 43.3 % (39.0-53.0) 39.5 % (39.0-53.0) Mean Corpuscular Volume 90 fL (79-100) 89 fL (79-100) Mean Corpuscular Hemoglobin 31 pg (25-35) 31 pg (25-35) Mean Corpuscular Hemoglobin Concent 35 g/dL (31-37) 35 g/dL (31-37) Red Cell Distribution Width 13.2 % (11.5-14.5) 12.8 % (11.5-14.5) Platelet Count 377 x10^3/uL (140-400) 459 x10^3/uL (140-400) Neutrophils (%) (Auto) 75 % (31-73) 60 % (31-73) Lymphocytes (%) (Auto) 14 % (24-48) 21 % (24-48) Monocytes (%) (Auto) 11 % (0-9) 19 % (0-9) Eosinophils (%) (Auto) 0 % (0-3) 0 % (0-3) Basophils (%) (Auto) 0 % (0-3) 0 % (0-3) Neutrophils # (Auto) 5.8 x10^3/uL (1.8-7.7) 4.0 x10^3/uL (1.8-7.7) Lymphocytes # (Auto) 1.1 x10^3/uL (1.0-4.8) 1.4 x10^3/uL (1.0-4.8) Monocytes # (Auto) 0.8 x10^3/uL (0.0-1.1) 1.2 x10^3/uL (0.0-1.1) Eosinophils # (Auto) 0.0 x10^3/uL (0.0-0.7) 0.0 x10^3/uL (0.0-0.7) Basophils # (Auto) 0.0 x10^3/uL (0.0-0.2) 0.0 x10^3/uL (0.0-0.2) D-Dimer (Katie) 2.02 ug/mlFEU (0.00-0.50) Sodium Level 138 mmol/L (136-145) 140 mmol/L (136-145) Potassium Level 4.0 mmol/L (3.5-5.1) 3.6 mmol/L (3.5-5.1) Chloride Level 98 mmol/L (98-107) 104 mmol/L (98-107) Carbon Dioxide Level 29 mmol/L (21-32) 28 mmol/L (21-32) Anion Gap 11 (6-14) 8 (6-14) Blood Urea Nitrogen 13 mg/dL (8-26) 14 mg/dL (8-26) Creatinine 0.8 mg/dL (0.7-1.3) 0.7 mg/dL (0.7-1.3) Estimated GFR (Cockcroft-Gault) 108.8 126.9 BUN/Creatinine Ratio 16 (6-20) Glucose Level 103 mg/dL (70-99) 127 mg/dL (70-99) Calcium Level 8.6 mg/dL (8.5-10.1) 8.6 mg/dL (8.5-10.1) Ferritin 1565 ng/mL (26-388) Total Bilirubin 0.4 mg/dL (0.2-1.0) Aspartate Amino Transf (AST/SGOT) 53 U/L (15-37) Alanine Aminotransferase (ALT/SGPT) 53 U/L (16-63) Alkaline Phosphatase 114 U/L (46-116) Lactate Dehydrogenase 354 U/L (85-227) Creatine Kinase 68 U/L (39-308) Troponin I Quantitative < 0.017 ng/mL (0.000-0.055) C-Reactive Protein, Quantitative 116.2 mg/L (0-3.3) TD-Acm-W-Type Natriuretic Peptide 21 pg/mL (0-124) Total Protein 7.5 g/dL (6.4-8.2) Albumin 3.4 g/dL (3.4-5.0) Albumin/Globulin Ratio 0.8 (1.0-1.7) Coronavirus (PCR) Detected (Not Detected) Segmented Neutrophils % 63 % (35-66) Band Neutrophils % 5 % (0-9) Lymphocytes % 20 % (24-48) Monocytes % 12 % (0-10) Platelet Estimate Increased (ADEQUATE) Laboratory Tests Test 06/03/20 03:30 White Blood Count 6.7 x10^3/uL (4.0-11.0) Red Blood Count 4.42 x10^6/uL (4.30-5.70) Hemoglobin 13.7 g/dL (13.0-17.5) Hematocrit 39.5 % (39.0-53.0) Mean Corpuscular Volume 89 fL (79-100) Mean Corpuscular Hemoglobin 31 pg (25-35) Mean Corpuscular Hemoglobin Concent 35 g/dL (31-37) Red Cell Distribution Width 12.8 % (11.5-14.5) Platelet Count 459 x10^3/uL (140-400) Neutrophils (%) (Auto) 60 % (31-73) Lymphocytes (%) (Auto) 21 % (24-48) Monocytes (%) (Auto) 19 % (0-9) Eosinophils (%) (Auto) 0 % (0-3) Basophils (%) (Auto) 0 % (0-3) Neutrophils # (Auto) 4.0 x10^3/uL (1.8-7.7) Lymphocytes # (Auto) 1.4 x10^3/uL (1.0-4.8) Monocytes # (Auto) 1.2 x10^3/uL (0.0-1.1) Eosinophils # (Auto) 0.0 x10^3/uL (0.0-0.7) Basophils # (Auto) 0.0 x10^3/uL (0.0-0.2) Segmented Neutrophils % 63 % (35-66) Band Neutrophils % 5 % (0-9) Lymphocytes % 20 % (24-48) Monocytes % 12 % (0-10) Platelet Estimate Increased (ADEQUATE) Sodium Level 140 mmol/L (136-145) Potassium Level 3.6 mmol/L (3.5-5.1) Chloride Level 104 mmol/L (98-107) Carbon Dioxide Level 28 mmol/L (21-32) Anion Gap 8 (6-14) Blood Urea Nitrogen 14 mg/dL (8-26) Creatinine 0.7 mg/dL (0.7-1.3) Estimated GFR (Cockcroft-Gault) 126.9 Glucose Level 127 mg/dL (70-99) Calcium Level 8.6 mg/dL (8.5-10.1) Comments CXR IMPRESSION: Patchy bilateral airspace disease, may be infectious or inflammatory in etiology. Impression . IMPRESSION: 1. Acute hypoxic respiratory failure secondary to COVID-19 pneumonia. 2. Abnormal chest x-ray with patchy interstitial infiltrates, COVID-19 pneumonia. Plan . RECOMMENDATIONS: 1. Continue with present oxygen to keep saturation 92, on 2 liters N/C 2. Continue empiric antibiotic, po augmentin for total of abx of 7 days 3. Continue prednison po for 10 day course with taper 4. Monitor the response to treatment. 5. no need for remdesivir at this time 6. Continue with high dose DVT prophylaxis and follow up the inflammatory markers. Discussed with RN. could possibly D/C home if able to coordinate home oxygen SILVINO CLARK MD Jun 03, 2020 08:47
[2020-06-03] MEDS: BUDESONIDE 0.5 MG/2 ML NEBU. NEB SCH ×2 (09:00→21:00)
[2020-06-03 11:00] VITALS: BP 135/74
[2020-06-03 15:00] VITALS: BP 132/70
--- NOTE | 2020-06-03 15:35 | PDOC ---
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 He was noted to be hypoxic in the Emergency Room and was placed on oxygen at 2 liters. Chest x-ray reviewed and showed bilateral interstitial infiltrates. Had a fever of 102. 08/07: Stable on O2. His COVID test was positive. Afebrile on 2 liters, no SOA no increased cough. Still with cough. Having some diarrhea, very little appetite. Vitals/I&O Vitals/I&O: Vital Signs Date Time Temp Pulse Resp B/P (MAP) Pulse Ox O2 Delivery O2 Flow Rate FiO2 06/03/20 11:00 97.5 86 18 135/74 (94) 96 Room Air 2.0 97.5 I & O 06/02/20 06/02/20 06/03/20 15:00 23:00 07:00 Intake Total 300 ml 50 ml Output Total 400 ml 1100 ml Balance -100 ml 50 ml -1100 ml Physical Exam General: Alert, Oriented X3, Cooperative, No acute distress, mild distress Abdomen: Normal bowel sounds, Soft Extremities: No cyanosis, No edema Skin: No significant lesion Labs Labs: Laboratory Tests Test 06/03/20 03:30 White Blood Count 6.7 x10^3/uL (4.0-11.0) Red Blood Count 4.42 x10^6/uL (4.30-5.70) Hemoglobin 13.7 g/dL (13.0-17.5) Hematocrit 39.5 % (39.0-53.0) Mean Corpuscular Volume 89 fL (79-100) Mean Corpuscular Hemoglobin 31 pg (25-35) Mean Corpuscular Hemoglobin Concent 35 g/dL (31-37) Red Cell Distribution Width 12.8 % (11.5-14.5) Platelet Count 459 x10^3/uL (140-400) Neutrophils (%) (Auto) 60 % (31-73) Lymphocytes (%) (Auto) 21 % (24-48) Monocytes (%) (Auto) 19 % (0-9) Eosinophils (%) (Auto) 0 % (0-3) Basophils (%) (Auto) 0 % (0-3) Neutrophils # (Auto) 4.0 x10^3/uL (1.8-7.7) Lymphocytes # (Auto) 1.4 x10^3/uL (1.0-4.8) Monocytes # (Auto) 1.2 x10^3/uL (0.0-1.1) Eosinophils # (Auto) 0.0 x10^3/uL (0.0-0.7) Basophils # (Auto) 0.0 x10^3/uL (0.0-0.2) Segmented Neutrophils % 63 % (35-66) Band Neutrophils % 5 % (0-9) Lymphocytes % 20 % (24-48) Monocytes % 12 % (0-10) Platelet Estimate Increased (ADEQUATE) Sodium Level 140 mmol/L (136-145) Potassium Level 3.6 mmol/L (3.5-5.1) Chloride Level 104 mmol/L (98-107) Carbon Dioxide Level 28 mmol/L (21-32) Anion Gap 8 (6-14) Blood Urea Nitrogen 14 mg/dL (8-26) Creatinine 0.7 mg/dL (0.7-1.3) Estimated GFR (Cockcroft-Gault) 126.9 Glucose Level 127 mg/dL (70-99) Calcium Level 8.6 mg/dL (8.5-10.1) Assessment and Plan Assessmemt and Plan Problems Medical Problems: (1) 2019 novel coronavirus disease (COVID-19) Status: Acute Comment Review of Relevant I have reviewed the following items ricardo (where applicable) has been applied. Medications: Current Medications Medications (Trade) Dose Ordered Sig/Piter Route PRN Reason Start Time Stop Time Status Last Admin Dose Admin Amoxicillin/ Clavulanate Potassium (Augmentin 875/ 125mg) 1 tab BID PO 06/02/20 21:00 06/03/20 08:21 Prednisone (Prednisone) 40 mg DAILY PO 06/03/20 09:00 06/03/20 08:21 Justicifation of Admission Dx: Justifications for Admission: Justification of Admission Dx: Yes CHF: Hemodynamic Instability Respiratory Failure: Severe Resp Distress Comminuty Aquired Pneumonia: Hypoxemia Chronic Renal Failure: Hemodynamic Instability Sepsis: End-Organ Dysfunction Altered Mental Status: Altered Mental Status RIOS PAK MD Jun 03, 2020 15:35
[2020-06-03 19:00] VITALS: BP 142/70
[2020-06-03] MEDS: LACTOBACILLUS RHAMNOSUS GG 1 CAPSULE. PO SCH (21:36)
[2020-06-03] MEDS: FAMOTIDINE 20 MG TABLET. PO SCH (21:36)
[2020-06-03 23:05] VITALS: BP 139/77
[2020-06-03] MEDS ORDERED: POTASSIUM CL 20MEQ D5-0.45NACL 1,000 ML IV ONE (23:15)
[2020-06-04 03:00] VITALS: BP 120/69
[2020-06-04 04:06] LABS: BASO % 0 % (0-3); EOS % 0 % (0-3); HEMOGLOBIN 13.8 g/dL (13.0-17.5); LYMPH # 1.8 x10^3/uL (1.0-4.8); LYMPH % 25 % (24-48); MEAN CORPUSCULAR HEMOGLOBIN 31 pg (25-35); MEAN CORPUSCULAR HGB CONC 35 g/dL (31-37); MEAN CORPUSCULAR VOLUME 90 fL (79-100); MONO % 14 % (0-9); NEUT # 4.4 x10^3/uL (1.8-7.7); NEUT % 61 % (31-73); PLATELET COUNT 505 x10^3/uL (140-400); RED BLOOD COUNT 4.44 x10^6/uL (4.30-5.70); RED CELL DISTRIBUTION WIDTH 13.2 % (11.5-14.5); WHITE BLOOD COUNT 7.2 x10^3/uL (4.0-11.0)
[2020-06-04 04:20] LABS: ALBUMIN 2.7 g/dL (3.4-5.0); ALBUMIN/GLOBULIN RATIO 0.6 (1.0-1.7); CALCIUM 8.8 mg/dL (8.5-10.1); CREATININE 0.7 mg/dL (0.7-1.3); GFR 126.9; POTASSIUM 3.6 mmol/L (3.5-5.1); TOTAL BILIRUBIN 0.4 mg/dL (0.2-1.0)
[2020-06-04 07:00] VITALS: BP 137/76
[2020-06-04] MEDS: FAMOTIDINE 20 MG TABLET. PO SCH ×2 (08:13→21:27)
[2020-06-04] MEDS: MULTIVITAMIN with MINERAL TABLET. PO SCH (08:13)
[2020-06-04] MEDS: AMOXICILLIN/K CLAV 875/125MG TABLET. PO SCH ×2 (08:13→21:27)
[2020-06-04] MEDS: LACTOBACILLUS RHAMNOSUS GG 1 CAPSULE. PO SCH ×2 (08:14→21:27)
[2020-06-04] MEDS: ENOXAPARIN 40 MG/0.4 ML SYRINGE. SQ SCH ×2 (08:14→21:27)
[2020-06-04] MEDS: predniSONE 20 MG TABLET PO SCH (08:14)
[2020-06-04] MEDS: BUDESONIDE 0.5 MG/2 ML NEBU. NEB SCH ×2 (09:00→21:00)
[2020-06-04 11:00] VITALS: BP 123/68
--- NOTE | 2020-06-04 13:54 | PDOC ---
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 He was noted to be hypoxic in the Emergency Room and was placed on oxygen at 2 liters. Chest x-ray reviewed and showed bilateral interstitial infiltrates. Had a fever of 102. 8/7: Stable on O2. His COVID test was positive. 06/03: Afebrile on 2 liters, no SOA no increased cough. Still with cough. Having some diarrhea, very little appetite. Afebrile, on 2 L, still with cough. No diarrhea yet today. Very little appetite. LFTs are increasing ALT greater than AST. Plan: Continue O2 weaning, tentatively planned for 6-minute walk Repeat CMP in a.m. Vitals/I&O Vitals/I&O: Vital Signs Date Time Temp Pulse Resp B/P (MAP) Pulse Ox O2 Delivery O2 Flow Rate FiO2 06/04/20 11:00 97.9 65 18 123/68 (86) 100 Nasal Cannula 2.0 97.9 I & O 06/03/20 06/03/20 06/04/20 15:00 23:00 07:00 Intake Total 500 ml Output Total 0 ml 300 ml 900 ml Balance 0 ml -300 ml -400 ml Physical Exam General: Alert, Oriented X3, Cooperative, No acute distress, mild distress Abdomen: Normal bowel sounds, Soft Extremities: No cyanosis, No edema Skin: No significant lesion Labs Labs: Laboratory Tests Test 06/04/20 03:30 White Blood Count 7.2 x10^3/uL (4.0-11.0) Red Blood Count 4.44 x10^6/uL (4.30-5.70) Hemoglobin 13.8 g/dL (13.0-17.5) Hematocrit 40.0 % (39.0-53.0) Mean Corpuscular Volume 90 fL (79-100) Mean Corpuscular Hemoglobin 31 pg (25-35) Mean Corpuscular Hemoglobin Concent 35 g/dL (31-37) Red Cell Distribution Width 13.2 % (11.5-14.5) Platelet Count 505 x10^3/uL (140-400) Neutrophils (%) (Auto) 61 % (31-73) Lymphocytes (%) (Auto) 25 % (24-48) Monocytes (%) (Auto) 14 % (0-9) Eosinophils (%) (Auto) 0 % (0-3) Basophils (%) (Auto) 0 % (0-3) Neutrophils # (Auto) 4.4 x10^3/uL (1.8-7.7) Lymphocytes # (Auto) 1.8 x10^3/uL (1.0-4.8) Monocytes # (Auto) 1.0 x10^3/uL (0.0-1.1) Eosinophils # (Auto) 0.0 x10^3/uL (0.0-0.7) Basophils # (Auto) 0.0 x10^3/uL (0.0-0.2) Sodium Level 139 mmol/L (136-145) Potassium Level 3.6 mmol/L (3.5-5.1) Chloride Level 102 mmol/L (98-107) Carbon Dioxide Level 30 mmol/L (21-32) Anion Gap 7 (6-14) Blood Urea Nitrogen 14 mg/dL (8-26) Creatinine 0.7 mg/dL (0.7-1.3) Estimated GFR (Cockcroft-Gault) 126.9 BUN/Creatinine Ratio 20 (6-20) Glucose Level 99 mg/dL (70-99) Calcium Level 8.8 mg/dL (8.5-10.1) Total Bilirubin 0.4 mg/dL (0.2-1.0) Aspartate Amino Transf (AST/SGOT) 70 U/L (15-37) Alanine Aminotransferase (ALT/SGPT) 129 U/L (16-63) Alkaline Phosphatase 89 U/L (46-116) Total Protein 7.0 g/dL (6.4-8.2) Albumin 2.7 g/dL (3.4-5.0) Albumin/Globulin Ratio 0.6 (1.0-1.7) Assessment and Plan Assessmemt and Plan Problems Medical Problems: (1) 2019 novel coronavirus disease (COVID-19) Status: Acute Comment Review of Relevant I have reviewed the following items ricardo (where applicable) has been applied. Medications: Current Medications Medications (Trade) Dose Ordered Sig/Piter Route PRN Reason Start Time Stop Time Status Last Admin Dose Admin Lactobacillus Rhamnosus (Culturelle) 1 cap BID PO 06/03/20 21:00 06/04/20 08:14 Famotidine (Pepcid) 20 mg BID PO 06/03/20 21:00 06/04/20 08:13 Potassium Chloride/Dextrose/ Sod Cl 1,000 ml @ 75 mls/hr 1X ONCE IV 06/03/20 23:15 06/04/20 12:34 DC 06/03/20 23:27 Justicifation of Admission Dx: Justifications for Admission: Justification of Admission Dx: Yes CHF: Hemodynamic Instability Respiratory Failure: Severe Resp Distress Comminuty Aquired Pneumonia: Hypoxemia Chronic Renal Failure: Hemodynamic Instability Sepsis: End-Organ Dysfunction Altered Mental Status: Altered Mental Status RIOS PAK MD Jun 04, 2020 13:54
[2020-06-04 15:00] VITALS: BP 142/71
[2020-06-04 19:00] VITALS: BP 134/61
[2020-06-04 23:00] VITALS: BP 128/76
[2020-06-05 03:00] VITALS: BP 141/87
[2020-06-05 05:15] LABS: ALBUMIN 2.9 g/dL (3.4-5.0); ALBUMIN/GLOBULIN RATIO 0.7 (1.0-1.7); CALCIUM 8.6 mg/dL (8.5-10.1); CREATININE 0.8 mg/dL (0.7-1.3); GFR 108.8; POTASSIUM 3.6 mmol/L (3.5-5.1); TOTAL BILIRUBIN 0.3 mg/dL (0.2-1.0); TOTAL PROTEIN 7.3 g/dL (6.4-8.2)
[2020-06-05 07:30] VITALS: BP 131/63
[2020-06-05] MEDS: ENOXAPARIN 40 MG/0.4 ML SYRINGE. SQ SCH (09:00)
[2020-06-05] MEDS: BUDESONIDE 0.5 MG/2 ML NEBU. NEB SCH (09:00)
[2020-06-05] MEDS ORDERED: AMOX1TAB11 PO (09:57)
[2020-06-05] MEDS ORDERED: PRED-220 PO (09:57)
[2020-06-05] MEDS ORDERED: ZINC SULFATE 220 MG CAPSULE. PO SCH (10:00)
--- NOTE | 2020-06-05 10:01 | PDOC3 ---
Discharge Summary Visit Information Date of Admission: Jun 01, 2020 Date of Discharge: Jun 05, 2020 Final Diagnosis IMPRESSION: 1. Acute hypoxic respiratory failure secondary to COVID-19 pneumonia. 2. Abnormal chest x-ray with patchy interstitial infiltrates, COVID-19 pneumonia. 3. sepsis 4. cough Plan Plan . RECOMMENDATIONS: 1. Continue with present oxygen to keep saturation 92, on 2 liters N/C 2. Continue empiric antibiotic, po augmentin for total of abx of 7 days 3. Continue prednison po for 10 day course with taper 4. Monitor the response to treatment. 5. no need for remdesivir at this time 6. Continue with high dose DVT prophylaxis and follow up the inflammatory markers. Problems Medical Problems: (1) 2019 novel coronavirus disease (COVID-19) Status: Acute Brief Hospital Course Allergies Allergies Coded Allergies Type Severity Reaction Last Updated Verified No Known Drug Allergies 06/01/20 No Vital Signs Vital Signs Date Time Temp Pulse Resp B/P (MAP) Pulse Ox O2 Delivery O2 Flow Rate FiO2 06/05/20 07:30 96.9 53 16 131/63 (85) 96 Nasal Cannula 2.0 96.9 Lab Results Laboratory Tests Test 06/04/20 03:30 06/05/20 04:00 White Blood Count 7.2 x10^3/uL (4.0-11.0) Red Blood Count 4.44 x10^6/uL (4.30-5.70) Hemoglobin 13.8 g/dL (13.0-17.5) Hematocrit 40.0 % (39.0-53.0) Mean Corpuscular Volume 90 fL (79-100) Mean Corpuscular Hemoglobin 31 pg (25-35) Mean Corpuscular Hemoglobin Concent 35 g/dL (31-37) Red Cell Distribution Width 13.2 % (11.5-14.5) Platelet Count 505 x10^3/uL (140-400) Neutrophils (%) (Auto) 61 % (31-73) Lymphocytes (%) (Auto) 25 % (24-48) Monocytes (%) (Auto) 14 % (0-9) Eosinophils (%) (Auto) 0 % (0-3) Basophils (%) (Auto) 0 % (0-3) Neutrophils # (Auto) 4.4 x10^3/uL (1.8-7.7) Lymphocytes # (Auto) 1.8 x10^3/uL (1.0-4.8) Monocytes # (Auto) 1.0 x10^3/uL (0.0-1.1) Eosinophils # (Auto) 0.0 x10^3/uL (0.0-0.7) Basophils # (Auto) 0.0 x10^3/uL (0.0-0.2) Sodium Level 139 mmol/L (136-145) 140 mmol/L (136-145) Potassium Level 3.6 mmol/L (3.5-5.1) 3.6 mmol/L (3.5-5.1) Chloride Level 102 mmol/L (98-107) 103 mmol/L (98-107) Carbon Dioxide Level 30 mmol/L (21-32) 29 mmol/L (21-32) Anion Gap 7 (6-14) 8 (6-14) Blood Urea Nitrogen 14 mg/dL (8-26) 12 mg/dL (8-26) Creatinine 0.7 mg/dL (0.7-1.3) 0.8 mg/dL (0.7-1.3) Estimated GFR (Cockcroft-Gault) 126.9 108.8 BUN/Creatinine Ratio 20 (6-20) 15 (6-20) Glucose Level 99 mg/dL (70-99) 92 mg/dL (70-99) Calcium Level 8.8 mg/dL (8.5-10.1) 8.6 mg/dL (8.5-10.1) Total Bilirubin 0.4 mg/dL (0.2-1.0) 0.3 mg/dL (0.2-1.0) Aspartate Amino Transf (AST/SGOT) 70 U/L (15-37) 110 U/L (15-37) Alanine Aminotransferase (ALT/SGPT) 129 U/L (16-63) 243 U/L (16-63) Alkaline Phosphatase 89 U/L (46-116) 110 U/L (46-116) Total Protein 7.0 g/dL (6.4-8.2) 7.3 g/dL (6.4-8.2) Albumin 2.7 g/dL (3.4-5.0) 2.9 g/dL (3.4-5.0) Albumin/Globulin Ratio 0.6 (1.0-1.7) 0.7 (1.0-1.7) Laboratory Tests Test 06/05/20 04:00 Sodium Level 140 mmol/L (136-145) Potassium Level 3.6 mmol/L (3.5-5.1) Chloride Level 103 mmol/L (98-107) Carbon Dioxide Level 29 mmol/L (21-32) Anion Gap 8 (6-14) Blood Urea Nitrogen 12 mg/dL (8-26) Creatinine 0.8 mg/dL (0.7-1.3) Estimated GFR (Cockcroft-Gault) 108.8 BUN/Creatinine Ratio 15 (6-20) Glucose Level 92 mg/dL (70-99) Calcium Level 8.6 mg/dL (8.5-10.1) Total Bilirubin 0.3 mg/dL (0.2-1.0) Aspartate Amino Transf (AST/SGOT) 110 U/L (15-37) Alanine Aminotransferase (ALT/SGPT) 243 U/L (16-63) Alkaline Phosphatase 110 U/L (46-116) Total Protein 7.3 g/dL (6.4-8.2) Albumin 2.9 g/dL (3.4-5.0) Albumin/Globulin Ratio 0.7 (1.0-1.7) Brief Hospital Course Mr. 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 admit to COVID 19 unit, he was postivei, had weaknewss, dyspnea, and new oxygen requirement, PULM consult, abx and steroids, will taper off, Discharge Information Condition at Discharge: Improved Follow Up: Weeks Disposition/Orders: D/C to Home Scheduled Amoxicillin/Potassium Clav (Amox Tr-K Clv 875-125 Mg Tab) 1 Each Tablet, 1 TAB PO BID for pneumonia, #12 Prescribed by: CHELSY CRAWFORD on 06/05/20956 Prednisone (Prednisone ) 10 Mg Tablet, 10 MG PO UD for acute infection, #15 Ref 0 Take 3 tablets by mouth daily for 3 days, then take 2 tablets by mouth daily for 2 days, then take 1 tablets by mouth daily for 2 days, then stop. Prescribed by: CHELSY CRAWFORD on 06/05/20956 Patient Instructions Patient Instructions Face to face discussed in [place], he felt well, Justicifation of Admission Dx: Justifications for Admission: Justification of Admission Dx: Yes CHF: Hemodynamic Instability Respiratory Failure: Severe Resp Distress Comminuty Aquired Pneumonia: Hypoxemia Chronic Renal Failure: Hemodynamic Instability Sepsis: End-Organ Dysfunction Altered Mental Status: Altered Mental Status CHELSY CRAWFORD MD Jun 05, 2020 10:01
[2020-06-05] MEDS: MULTIVITAMIN with MINERAL TABLET. PO SCH (10:09)
[2020-06-05] MEDS: FAMOTIDINE 20 MG TABLET. PO SCH (10:09)
[2020-06-05] MEDS: LACTOBACILLUS RHAMNOSUS GG 1 CAPSULE. PO SCH (10:09)
[2020-06-05] MEDS: AMOXICILLIN/K CLAV 875/125MG TABLET. PO SCH (10:09)
[2020-06-05] MEDS: predniSONE 20 MG TABLET PO SCH (10:11)
[2020-06-05 11:11] VITALS: BP 147/57
--- NOTE | 2020-06-05 12:20 | NUR ---
Pt discharged home with family. Discharge teaching reviewed in [facility]. Questions answered. Unit telephone number given to pt so any family members may call with questions. Pt reports that he lives with family who speak north k[place].
== END 2020-06-05 12:20 | disposition home or self-care (01) | DRG 177 ==
LOC: ER 15:13 → 6 SOUTH 16:20
PROVIDERS: ADMIT Family Medicine; ATTEND Family Medicine
DX: U07.1 COVID-19 (principal); A41.89 Other specified sepsis; J12.89 Other viral pneumonia; J96.01 Acute respiratory failure with hypoxia; Z82.49 Family history of ischemic heart disease and other diseases of the circulatory system; Z87.891 Personal history of nicotine dependence; Z90.49 Acquired absence of other specified parts of digestive tract; Z79.899 Other long term (current) drug therapy
CPT/HCPCS: 36415; 71045; 80048; 80053; 82550; 82728; 83615; 83880; 84484; 85007; 85025; 85379; 86140; 87040; 93005; 96365; 96375; 99285; J0696; J1650; J2543; J2920; J3480; J3490; J7030; J7512; G0378; U0003-CS